=== PATIENT | female | born 1985 | race Caucasian/White ===

== ENCOUNTER 2016-04-23 07:31 | Day surgery (SDC) | payer OTHER ==
--- NOTE | 2016-04-22 02:34 | PREOPHP ---
DATE OF ADMISSION: 04/23/2016 HISTORY OF PRESENT ILLNESS: This is a 30-year-old female 2, para 2. This patient had 2 pre vious sections and she had requested a tubal ligation. The patient had requested a permane nt sterilization without the possibility of tuboplasty. She would like to have the option of a salp ingectomy instead of a partial salpingectomy due to the fact that she would not like to have a possi bility of an ectopic . Also, she had a history of pelvic adhesions and she would like this procedure to be done completely to prevent possibilities of more adhesions. PAST MEDICAL HISTORY: Previous section x2. Otherwise, she has been healthy. SOCIAL HISTORY: She does not drink or smoke or have done any drugs. PAST MEDICAL HISTORY: Also noncontributory. FAMILY HISTORY: Noncontributory. ALLERGIES: SHE IS NOT ALLERGIC TO ANY MEDICATION. PHYSICAL EXAMINATION: VITAL SIGNS: She is 4 feet 11 inches. She is 163 pounds. HEAD AND NECK: Normal. CHEST: Clear. HEART: Normal sinus rhythm. LUNGS: Clear. BREASTS: Soft, nontender, no masses. ABDOMEN: Soft, nontender, no masses. EXTREMITIES: Normal with normal pulses, normal reflexes, and no edema. PELVIC: No changes in pelvic exam. EXTREMITIES: Normal. DIAGNOSES: 1. stabilization. 2. Pelvic adhesions 3. Previous sections x2. PLAN: She is undergoing a pelviscopic bilateral salpingectomy. She has been advised of the possibl e risks and possible complications of the procedure with her alternatives and options. Written info rmation was provided. She had no more questions and agreed to go ahead with the procedure with full understanding and no more questions. Dictated By: TOPHER TREVIZO/NTS Conf#: [id number] DID#: [id number]
[2016-04-23] VITALS (19 sets, daily range): BP systolic 105–144; BP diastolic 59–84; PULSE 72–98; RESP 10–18; Ht 149.9 cm; Wt 74.0 kg
[~2016-04-23] VITALS: Ht 149.9 cm; Wt 74.0 kg
[~2016-04-23 07:31] MED LIST: CEFAZOLIN 2 GM/50 ML (PMX) 50 ML IVPB ONE; NORE-38 PO; PREN1COM; [UNRECOGNIZED DRUG - REMARK]
[2016-04-23] MEDS ORDERED: BUPIVACAINE 0.5%/EPI (SDV) 30 ML INJ ONE (09:07)
--- NOTE | 2016-04-23 09:58 | HPN ---
Date/Time of Note Date/Time of Note DATE: 04/23/16 TIME: 09:58 Interval H&P Admission Note Pt. seen H&P reviewed: No system changes TOPHER RODRIGUEZ MD Apr 23, 2016 09:58
[2016-04-23] MEDS ORDERED: SUCCINYLCHOLINE CHLORIDE 100 MG/5 ML SYG IV ONE (10:05)
[2016-04-23] MEDS ORDERED: LIDOCAINE 2% (SDV) 5 ML INJ ONE (10:05)
[2016-04-23] MEDS ORDERED: ROCURONIUM 50 MG INJ ONE (10:05)
[2016-04-23] MEDS ORDERED: PROPOFOL 20 ML ONE (10:05)
[2016-04-23] MEDS ORDERED: MIDAZOLAM 1 MG/ML 2 ML INJ ONE (10:05)
[2016-04-23] MEDS ORDERED: FENTAnyl 50 MCG/ML VIAL ONE (10:06)
[2016-04-23] MEDS ORDERED: ONDANSETRON 4 MG INJ ONE (10:16)
[2016-04-23] MEDS ORDERED: DEXAMETHASONE 4 MG/ML 1 ML INJ ONE (10:16)
[2016-04-23] MEDS ORDERED: CEFAZOLIN 1 GM INJ ONE (10:16)
[2016-04-23] MEDS ORDERED: NEOSTIGMINE 3 MG/3 ML SYRINGE ONE (10:24)
[2016-04-23] MEDS ORDERED: GLYCOPYRROLATE 0.4 MG INJ ONE (10:24)
[2016-04-23] MEDS ORDERED: MEPERIDINE 25 MG INJ IV PRN (10:30)
[2016-04-23] MEDS ORDERED: DIPHENHYDRAMINE 50 MG INJ IV PRN (10:30)
[2016-04-23] MEDS ORDERED: PROCHLORPERAZINE 10 MG INJ IV PRN (10:30)
[2016-04-23] MEDS ORDERED: ONDANSETRON 4 MG INJ IV PRN (10:30)
[2016-04-23] MEDS ORDERED: FENTAnyl 50 MCG/ML VIAL IV PRN (10:30)
[2016-04-23] MEDS ORDERED: OXYCODONE/ACETAMINOPHEN (5/325) TAB PO PRN (10:30)
[2016-04-23] MEDS ORDERED: HYDROmorphONE 2 MG/ML SYG ONE (11:03)
[2016-04-23] MEDS ORDERED: EPHEDrine SULFATE 50 MG/5 ML SYG ONE (11:24)
[2016-04-23] MEDS ORDERED: BUPIVACAINE 0.5%/EPI (SDV) 30 ML INJ INJ ONE (11:29)
[2016-04-23] MEDS ORDERED: KETOROLAC 30 MG INJ ONE (11:30)
--- NOTE | 2016-04-23 11:40 | PD.PPDC ---
[employer] Discharge Instruction Diagnosis Final Diagnosis: intractable pelvic pain, pelvic adhesions, early fibroid uterus Condition Patient Condition: Good Diet Diet: Resume Regular Diet Activity/Restrictions Activity: Normal Activity May Shower Restrictions: No Exercising No Lifting No Driving No Sexual Activity Nothing in the Vagina No [place] No Tampons, douche Wound/Drain Care Instructions Wound/Drain Care Instructions: Remove Steri Strips in 1 week Wash with soap and water Keep clean and dry Follow-up Follow-up with Physician: Week/Weeks Return to clinic for [facility] Instructions: Fever greater than 101 Chills Worsening abdominal pain Excessive Vaginal Bleeding More than 2 pads per hour Unable to tolerate diet Surgical Instructions: Incisional Drainage Incisional Redness TOPHER RODRIGUEZ MD Apr 23, 2016 11:40
--- NOTE | 2016-04-23 11:46 | OPPN ---
Date/Time of Note Date/Time of Note DATE: 04/23/16 TIME: 11:41 Operative/Procedure Note Pre-Operative Diagnosis Pelvic adhesions Previous c/s ( 2 ) multiparity pelvic pain PCO syndrome early fibroid Post-Operative Diagnosis same Procedure pelviscopic lysis of adhesions bilateral salpingectomy Surgeon: TOPHER RODRIGUEZ MD Anesthesiologist: NELIDA SORIA MD Findings pelvic adhesions post c/s early fibroid PCO syndrome multiparity Implants/Grafts: Not applicable Estimated blood loss: minimal Specimens bilateral tubes Complications: None Anesthesia type: general TOPHER RODRIGUEZ MD Apr 23, 2016 11:46
[2016-04-23] MEDS ORDERED: KETOROLAC 30 MG INJ IV PRN (12:00)
--- NOTE | 2016-04-23 12:41 | OPR ---
DATE OF OPERATION: 04/23/2016 PROCEDURE: Pelviscopic lysis of adhesions and bilateral salpingectomy. PREOPERATIVE DIAGNOSES: 1. Intractable pelvic pain, pelvic adhesions. 2. Previous sections x2. 3. PCO syndrome 4. Multiparity. 5. Uterine adhesions. POSTOPERATIVE DIAGNOSIS: 1. Intractable pelvic pain, pelvic adhesions. 2. Previous sections x2. 3. PCO syndrome 4. Multiparity. 5. Uterine adhesions. SURGEON: Dr. Diane. ANESTHESIA: General. DESCRIPTION OF PROCEDURE: The patient was given general anesthesia, placed in the lithotomy positio n. The abdomen was prepped and draped and a Alejo catheter was placed in the bladder. A uterine ma nipulator was inserted inside the uterus. The abdomen had been prepped and draped and a small incis ion was made over the inferior edge of the umbilicus and the Padmini was placed and the balloon of e Padmini was inflated. The visualization of the pelvic organs revealed that the uterus was small, s lightly irregular as possible early fibroid. Both ovaries were large polycystic ovaries with tiny e ndometrial implants. Both tubes were normal. There was a major adhesion of the uterus to the bladd er and to the abdominal wall from previous section. The second trocar and cannula and a ird trocar and cannula with a 5 mm trocar were placed suprapubically over the midline and right-side d 5 cm below the umbilicus laterally to the rectus muscle. The gyrus was inserted in the hold the tube, and from the fimbriated end the tube was excised with bipolar current with gyrus all the way up to the isthmic portion of the uterus. The same thing was done with the other side utilizing a #5 scope laterally. The specimens were retrieved. At this time, the cavity was washed for hemodynamics and possible hem ostasis and it was found to be satisfactory. A piece of the left tube had been left in was also bur haseeb and cut and removed. The adhesions of the uterus to the bladder and abdominal wall was lysed wi using the gyrus and with bipolar current, the incision was cut. It was a thick adhesion. The bl adder was checked and the urine was clear. The procedure was finished by removing all the instrumen ts. The gas being deflated of the abdomen and the abdomen was closed with 0 Vicryl for the fascia a nd 3-0 Monocryl for all 3 incisions. Marcaine solution with epinephrine was used in all 3 incisions for pain control and Dermabond and Steri-Strips. The patient tolerated the procedure well and left the OR awake and stable. Sponge counts, instrument counts and needle counts were correct. Intrave nous antibiotics were given for prophylaxis. Dictated By: TOPHER TREVIZO/SANJU Conf#: [id number] DID#: [id number]
[2016-04-23] MEDS: HYDROmorphONE (0.2 MG/ML) 10ML SYG IV PRN ×2 (12:49→12:56)
== END 2016-04-23 16:32 | disposition home or self-care (01) ==
LOC: SDS 07:31
PROVIDERS: ATTEND Obstetrics & Gynecology
DX: Z30.2 Encounter for sterilization (principal); E28.2 Polycystic ovarian syndrome; N73.6 Female pelvic peritoneal adhesions (postinfective)
CPT/HCPCS: 58661; 84703; 88302; J0330; J0690; J1100; J1170; J1885; J2175; J2250; J2405; J2710; J3010; Z7512; Z7610